=== PATIENT | male | born 1960 | race Caucasian/White ===

== ENCOUNTER 2019-06-21 22:59 | Emergency (ER) | payer BC ==
[2019-06-21] MEDS ORDERED: Diphtheria,Pertussis(Acell),Tetanus Vaccine 0.5 ML SDV IM ONE (23:12)
[2019-06-21 23:18] VITALS: BP 116/74
[2019-06-21] MEDS ORDERED: Bacitracin/Neomycin/Polymyxin B Oint 0.9 GM U/D Packet TOP ONE (23:19)
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
== END 2019-06-21 23:59 | disposition home or self-care (01) ==
LOC: LL.ED 22:59
DX: S61.412A Laceration without foreign body of left hand, initial encounter (principal); J45.909 Unspecified asthma, uncomplicated; E03.9 Hypothyroidism, unspecified; Z79.899 Other long term (current) drug therapy; Z23 Encounter for immunization; W26.0XXA Contact with knife, initial encounter
CPT/HCPCS: 12002; 90471; 90715; 99282; J2001